=== PATIENT | female | born 1955 | race Caucasian/White ===

== ENCOUNTER 2016-06-19 09:03 | Emergency (ER) | payer OTHER ==
[2016-06-19 09:22] VITALS: BP 152/98; PULSE 66; RESP 18; TEMP 97.7; O2SAT 97
--- NOTE | 2016-06-19 09:54 | UCPHY ---
H & P Time Seen by Provider: 06/19/16 09:35 Patient Type: New HPI/ROS: This patient just drove from [place] to [place] and moved with her . She carried a lot of items and sat for while in the car and has developed some blood streaks with her stool concerning her for potential hemorrhoid. She also reports moderate discomfort while having a bowel movement but no significant discomfort between bowel movements. Symptoms have been present for 3 days and have not yet resolved. ROS: She reports no lightheadedness. No other constitutional symptoms. HEENT : No complaints pulmonary: No dyspnea cardiovascular: No heart palpitations or lightheadedness. GI: No hemoptysis nausea or vomiting. Normal bowel movements. No significant constipation. 10 point ROS is otherwise negative. Past Medical/Surgical History: Otherwise healthy She had a normal colonoscopy 1 1/2 years ago in [place] Smoking Status: Never smoked Physical Exam: General Appearance: Alert, no distress. Eyes: Pupils equal and round no pallor or injection. ENT, Mouth: Mucous membranes moist. Respiratory: There are no retractions, lungs are clear to auscultation. Cardiovascular: Regular rate and rhythm. Gastrointestinal: Abdomen is soft and nontender, no masses, bowel sounds normal. Rectal exam: No external hemorrhoids. Rectal exam: Minimal tenderness. No masses are appreciated. No obvious blood-light brown stool Hemoccult studies pending Neurological: Alert with no focal deficits. Skin: Warm and dry, no rashes. Musculoskeletal: Neck is supple nontender. Extremities are symmetrical, full range of motion. Psychiatric: Mood and affect are normal. DIFFERENTIAL DIAGNOSIS: After history and physical exam differential diagnosis was considered for internal hemorrhoid, anal fissure, lower GI bleed Constitutional: Initial Vital Signs Temperature (C) 36.5 C 06/19/16 09:19 Heart Rate 66 06/19/16 09:19 Respiratory Rate 18 06/19/16 09:19 Blood Pressure 152/98 H 06/19/16 09:19 O2 Sat (%) 97 06/19/16 09:19 O2 Delivery Mode Room Air Allergies/Adverse Reactions: naproxen Allergy (Verified 06/19/16 09:50) Penicillins Allergy (Verified 06/19/16 09:50) prochlorperazine [From Compazine] Allergy (Verified 06/19/16 09:50) prochlorperazine edisylate [From Compazine] Allergy (Verified 06/19/16 09:50) prochlorperazine maleate [From Compazine] Allergy (Verified 06/19/16 09:50) Sulfa (Sulfonamide Antibiotics) Allergy (Verified 06/19/16 09:50) Home Medications: Medication Instructions Recorded Docusate Sodium [Colace 100 MG (*)] 100 mg PO BID #20 cap 06/19/16 Hydrocortisone [Proctocort] 1 marysol RC DAILY PRN #28 cream..g. 06/19/16 MDM/Departure - [facility] ED Course/Re-evaluation: I counseled this patient regarding anal fissure and internal hemorrhoid. Think these are the most likely diagnosis for this patient needed appears entirely well. She will follow up with Gastroenterology if she does not have resolution of her symptoms with steroid anal cream and stool softener. - Depart Disposition: Home, Routine, Self-Care Clinical Impression: Bloody stool, Proctodynia Condition: Good Instructions: Rectal Bleeding (ED), Anal Fissure (ED) Additional Instructions: Diagnoses: 1. Bloody stool 2. Proctodynia (anal pain) You have no external hemorrhoids. You may have an internal hemorrhoid or fissure causing your symptoms. Plan: Apply the steroid anal cream daily to twice a day Stool softeners Symptoms should resolve over the next few days. If not, call Dr. Waddell- staff services manager for further evaluation in follow-up Return here to the emergency department for any significant worsening despite the treatment Prescriptions: Docusate Sodium [Colace 100 MG (*)] 100 mg PO BID #20 cap Hydrocortisone [Proctocort] 1 marysol RC DAILY PRN #28 cream..g. PRN Reason: anal fissure Referrals: Jaden Waddell MD [Medical Doctor] - As per Instructions - PQRS PQRS Measurement: NA
== END 2016-06-19 10:15 | disposition home or self-care (01) ==
LOC: CED 09:03
DX: R19.5 Other fecal abnormalities (principal); K62.89 Other specified diseases of anus and rectum; Z88.0 Allergy status to penicillin; Z88.2 Allergy status to sulfonamides
CPT/HCPCS: 82270-PO; 99203-PO; G0463-PO